=== PATIENT | female | born 1990 | race Caucasian/White ===

== ENCOUNTER 2019-01-09 03:47 | Emergency (ER) | payer SELFPAY ==
[~2019-01-09] VITALS: Ht 160 cm; Wt 86.2 kg
[2019-01-09 04:46] LABS: BILIRUBIN,URINE NEGATIVE (NEGATIVE); CLARITY,URINE CLOUDY (CLEAR); COLOR,URINE YELLOW (YELLOW); KETONES,URINE NEGATIVE (NEGATIVE); LEUKOCYTE ESTERASE ,URINE LARGE (NEGATIVE); NITRITE,URINE POSITIVE (NEGATIVE); PROTEIN,URINE DIPSTICK 2+ (NEGATIVE); URINE UROBILINOGEN 1 mg/dL (0.2 - 1)
[2019-01-09 04:48] LABS: PREGNANCY TEST, URINE NEGATIVE (NEGATIVE)
[2019-01-09 05:00] LABS: BACTERIA,URINE MANY /HPF; EPITHELIAL CELLS,URINE FEW /LPF; WBC,URINE (MAN) >50 /HPF (0-5)
[2019-01-09] MEDS ORDERED: PYRIDIUM100 MG PO (05:24)
[2019-01-09] MEDS ORDERED: MACROBID 100 M100 MG PO (05:24)
[2019-01-09] MEDS ORDERED: KETOROLAC TROMETHAMINE 60 MG/2 ML VIAL IM ONE (05:30)
[2019-01-09 05:54] VITALS: BP 122/76
--- NOTE | 2019-01-09 06:00 | Diagnostic Imaging Report ---
EXAMINATION: PA and lateral views of the chest. COMPARISON: None CLINICAL HISTORY: Pain DISCUSSION: Lines/tubes: None. Lungs: The lungs are well inflated and clear. No pneumonia or pulmonary edema. Pleura: No pleural effusion or pneumothorax. Heart and mediastinum: The cardiomediastinal silhouette is normal. Bones and soft tissues: No acute bony abnormalities. IMPRESSION: No acute cardiopulmonary abnormalities. Signed by: Dr. Robin Duong M.D. on 01/09/2019 5:57 AM
--- NOTE | 2019-01-09 06:01 | Diagnostic Imaging Report ---
Exam:Abdominal radiograph History:Pain Comparison: None available Findings:Nonobstructive bowel gas pattern No radiopaque calculi. Mild amount of retained stool. Impression: Nonobstructive bowel gas pattern. Signed by: Dr. Robin Duong M.D. on 01/09/2019 5:58 AM
== END 2019-01-09 06:01 | disposition home or self-care (01) ==
LOC: ER 03:47
DX: R30.0 Dysuria (principal); N30.91 Cystitis, unspecified with hematuria
CPT/HCPCS: 71046; 74018; 81001; 81025; 87086; 87186; 96372; 99283; J1885

== ENCOUNTER 2019-02-05 00:01 | Emergency (ER) | payer MEDICARE, OTHER ==
[~2019-02-05] VITALS: Ht 160 cm; Wt 86.2 kg
[~2019-02-05 00:01] MED LIST: MACROBID 100 M100 MG PO; PYRIDIUM100 MG PO
--- OUTSIDE RECORDS SUMMARY | 2019-02-05 00:03 | XMS REPORT ---
Author Author [facility] Address Unknown Phone Unavailable Care Team Providers Care It Service Technician Name Role Phone [place] FLORES Unavailable Unavailable Problems This patient has no known problems. Allergies, Adverse Reactions, Alerts This patient has no known allergies or adverse reactions. Medications This patient has no known medications. Results Test Description Test Time Test Comments Text Results Atomic Results Result Comments ABDOMEN-1VIEW ([facility]) 2019-01-09 05:57:00 [place] [address] Patient Name: JHONY GASTELUM MR #: [id number] : 1990 Age/Sex: 28/F Req #: [id number] Adm Physician: Ordered by: YEFRI FLORES MD Report #: [id number] Location: ER Room/Bed: Procedure: [id number] DX/ABDOMEN-1VIEW ([facility]) Exam Date: 01/09/19 Exam Time: 0530 REPORT STATUS: Signed Exam:Abdominal radiograph History:Pain Comparison: None available Findings:Nonobstructive bowel gas pattern No radiopaque calculi. Mild amount of retained stool. Impression: Nonobstructive bowel gas pattern. Signed by: Dr. Piyush De Leon M.D. on 01/09/2019 5:58 AM Dictated By: PIYUSH DE LEON MD Transcribed By: CATA on 01/09/19 58 COPY TO: YEFRI FLORES MD CHEST 2 VIEWS 2019-01-09 05:56:00 [place] [address] Patient Name: JHONY GASTELUM MR #: [id number] : 1990 Age/Sex: 28/F Req #: [id number] Adm Physician: Ordered by: YEFRI FLORES MD Report #: [id number] Location: ER Room/Bed: Procedure: [id number] DX/CHEST 2 VIEWS Exam Date: 01/09/19 Exam Time: 0530 REPORT STATUS: Signed EXAMINATION: PA and lateral views of the chest. COMPARISON: None CLINICAL HISTORY: Pain DISCUSSION: Lines/tubes: None. Lungs: The lungs are well inflated and clear. No pneumonia or pulmonary edema. Pleura: No pleural effusion or pneumothorax. Heart and mediastinum: The cardiomediastinal silhouette is normal. Bones and soft tissues: No acute bony abnormalities. IMPRESSION: No acute cardiopulmonary abnormalities. Signed by: Dr. Piyush De Leon M.D. on 01/09/2019 5:57 AM Dictated By: PIYUSH DE LEON MD Transcribed By: CATA on 01/09/1957 COPY TO: YEFRI FLORES MD
--- NOTE | 2019-02-05 01:00 | NUR ---
PETER MEYER AT FOR INITIAL EVAL
[2019-02-05] MEDS ORDERED: KETOROLAC TROMETHAMINE 30 MG/ML VIAL IM STA (01:34)
[2019-02-05] MEDS ORDERED: KETOROLAC TROMETHAMINE 30 MG/ML VIAL ONE (01:38)
--- NOTE | 2019-02-05 02:43 | Diagnostic Imaging Report ---
EXAMINATION: CXR 2 VIEW - HOPD INDICATION: ^[id number] ^[id number] COMPARISON: 01/09/2019 FINDINGS: PA and lateral views TUBES and LINES: None. LUNGS: Lungs are well inflated. There is no evidence of pneumonia or pulmonary edema. PLEURA: No pleural effusion or pneumothorax. HEART AND MEDIASTINUM: The cardiomediastinal silhouette is unremarkable. BONES AND SOFT TISSUES: No acute osseous lesion. Soft tissues are unremarkable. UPPER ABDOMEN: No free air under the diaphragm. IMPRESSION: No acute thoracic abnormality. Signed by: Dr. Edmond Warner MD on 02/05/2019 2:40 AM
--- NOTE | 2019-02-05 02:44 | Diagnostic Imaging Report ---
KNEE 3VW LT - HOPD - 3 views HISTORY: Pain COMPARISON: None available. FINDINGS: Bones: No acute displaced fracture. Osseous alignment is within normal limits. Joints: The joint spaces are well-maintained. Soft tissues: The soft tissues appear unremarkable. IMPRESSION: No acute radiographic abnormality. Signed by: Dr. Edmond Warner MD on 02/05/2019 2:40 AM
--- NOTE | 2019-02-05 02:48 | Diagnostic Imaging Report ---
HAND 3 VIEW RT - HOPD - 3 views HISTORY: Pain COMPARISON: None available. FINDINGS: Bones: No acute displaced fracture. Osseous alignment is within normal limits. Joints: The joint spaces are well-maintained. Soft tissues: The soft tissues appear unremarkable. IMPRESSION: No acute radiographic abnormality. Signed by: Dr. Edmond Warner MD on 02/05/2019 2:45 AM
--- NOTE | 2019-02-05 02:49 | Diagnostic Imaging Report ---
SHOULDER 2+VW RT - HOPD - 3 views HISTORY: Pain COMPARISON: None available. FINDINGS: Bones: No acute displaced fracture. Osseous alignment is within normal limits. Joints: The joint spaces are well-maintained. Soft tissues: The soft tissues appear unremarkable. IMPRESSION: No acute radiographic abnormality. Signed by: Dr. Edmond Warner MD on 02/05/2019 2:46 AM
--- NOTE | 2019-02-05 02:50 | Diagnostic Imaging Report ---
ANKLE 3 VIEW RT - HOPD - 3 views HISTORY: Pain COMPARISON: None available. FINDINGS: Bones: No acute displaced fracture. Osseous alignment is within normal limits. Joints: The joint spaces are well-maintained. Soft tissues: The soft tissues appear unremarkable. IMPRESSION: No acute radiographic abnormality. Signed by: Dr. Edmond Warner MD on 02/05/2019 2:46 AM
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
== END 2019-02-05 04:00 | disposition home or self-care (01) ==
LOC: FSED 00:01
DX: S40.011A Contusion of right shoulder, initial encounter (principal); S60.011A Contusion of right thumb without damage to nail, initial encounter; S90.01XA Contusion of right ankle, initial encounter; S80.02XA Contusion of left knee, initial encounter; V43.92XA Unspecified car occupant injured in collision with other type car in traffic accident, initial encounter; Y92.414 Local residential or business street as the place of occurrence of the external cause
CPT/HCPCS: 71046; 72125; 73030; 73130; 73562; 73610; 99283; J1885

== ENCOUNTER 2020-05-22 16:15 | Emergency (ER) | payer MEDICARE, OTHER ==
[~2020-05-22] VITALS: Ht 160 cm; Wt 86.2 kg
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
[2020-05-22] MEDS ORDERED: TETANUS/DIPHTHERIA TOX ADULT 0.5 ML SYR IM ONE (17:00)
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
[2020-05-22] MEDS ORDERED: CIPRO250 MG/5 M PO (18:00)
[2020-05-22 18:11] VITALS: BP 139/73
--- NOTE | 2020-05-22 18:27 | Diagnostic Imaging Report ---
FOOT RIGHT AP LAT - 3 views HISTORY: Pain. Stepped on foreign body. COMPARISON: None available. FINDINGS: Bones: No acute displaced fracture. Osseous alignment is within normal limits. Small osteophyte in the first metatarsal head. Joints: Relatively preserved. Soft tissues: Marked soft tissue edema of the forefoot, particularly the plantar aspect. No radiopaque foreign body. IMPRESSION: Marked soft tissue edema of the forefoot, particularly the plantar aspect. No radiopaque foreign body. Signed by: Dr. Sabina Patel M.D. on 05/22/2020 6:23 PM
== END 2020-05-22 18:13 | disposition home or self-care (01) ==
LOC: ER 16:45
DX: S91.341A Puncture wound with foreign body, right foot, initial encounter (principal); W25.XXXA Contact with sharp glass, initial encounter; Y93.01 Activity, walking, marching and hiking; Y92.008 Other place in unspecified non-institutional (private) residence as the place of occurrence of the external cause
CPT/HCPCS: 90471; 90714; 99283

== ENCOUNTER 2020-11-28 11:43 | Emergency (ER) | payer MEDICARE, OTHER ==
[~2020-11-28] VITALS: Ht 160 cm; Wt 86.2 kg
[~2020-11-28 11:43] MED LIST changes: +CIPRO250 MG/5 M PO
[2020-11-28] MEDS ORDERED: SODIUM CHLORIDE 0.9% 1000ML 1,000 ML IV STA (11:58)
[2020-11-28] MEDS ORDERED: MORPHINE SULFATE INJ 4 MG/ML INJ 1ML IV STA (11:58)
[2020-11-28] MEDS ORDERED: ONDANSETRON HCL INJ 2MG/ML 2ML 2 MG/ML VIAL IV STA (11:58)
[2020-11-28 12:55] LABS: CLARITY,URINE SL CLOUDY (CLEAR); COLOR,URINE YELLOW (YELLOW); KETONES,URINE NEGATIVE (NEGATIVE); LEUKOCYTE ESTERASE ,URINE TRACE (NEGATIVE); NITRITE,URINE NEGATIVE (NEGATIVE); PROTEIN,URINE DIPSTICK NEGATIVE (NEGATIVE); URINE UROBILINOGEN 0.2 mg/dL (0.2 - 1)
[2020-11-28 13:00] LABS: ALANINE AMINOTRANSFERASE 22 IU/L (0-55); ALBUMIN/GLOBULIN RATIO 1.1 (0.8-2.0); ALKALINE PHOSPHATASE 63 IU/L (40-150); ANION GAP 12.1 mmol/L (8-16); BLOOD UREA NITROGEN 13 mg/dL (7-26); BUN/CREATININE RATIO 19 (6-25); CALCIUM 9.1 mg/dL (8.4-10.2); CARBON DIOXIDE 26 mmol/L (22-29); CHLORIDE 105 mmol/L (98-107); CREATININE, SERUM 0.69 mg/dL (0.57-1.11); EST GLOMERULAR FILTRATION RATE > 60 ML/MIN (60-); GLUCOSE 102 mg/dL (74-118); LIPASE 35 U/L (8-78); POTASSIUM 4.1 mmol/L (3.5-5.1); SODIUM 139 mmol/L (136-145)
[2020-11-28 13:06] LABS: BACTERIA,URINE MANY /HPF; EPITHELIAL CELLS,URINE MODERATE /LPF; WBC,URINE (MAN) 0-5 /HPF (0-5)
[2020-11-28 13:13] LABS: BASOPHILS % 0.5 % (0.0-1.0); EOSINOPHILS % 0.4 % (0.0-6.0); HEMATOCRIT 37.9 % (34.2-44.1); HEMOGLOBIN 11.7 g/dL (12.0-16.0); LYMPHOCYTES # (AUTO) 1.7 (1.0-3.2); LYMPHOCYTES % 23.4 % (18.0-39.1); MEAN CORPUSCULAR HEMOGLOBIN 25.9 pg (28-32); MEAN CORPUSCULAR HGB CONC 30.9 g/dL (31-35); MEAN CORPUSCULAR VOLUME 83.8 fL (81-99); MONOCYTES # (AUTO) 0.4 (0.2-0.8); MONOCYTES % 5.8 % (4.4-11.3); NEUTROPHILS # (AUTO) 5.1 (2.1-6.9); NEUTROPHILS % 69.6 % (38.7-80.0); PLATELET COUNT 452 x10e3/uL (140-360); RED BLOOD COUNT 4.52 x10e6/uL (3.6-5.1); RED CELL DISTRIBUTION WIDTH 15.2 % (11.7-14.4)
[2020-11-28] MEDS ORDERED: IOPAMIDOL 370 MG/ML 200 ML INFUS..BTL INJ ONE (13:52)
[2020-11-28] MEDS ORDERED: SODIUM CHLORIDE 0.9% 50ML 50 ML ONE (13:52)
[2020-11-28] MEDS ORDERED: ZOFRAN4 MG PO (14:58)
[2020-11-28] MEDS ORDERED: TYLENOL # 31 EA PO (14:58)
== END 2020-11-28 15:04 | disposition home or self-care (01) ==
LOC: ER 13:33
DX: G89.18 Other acute postprocedural pain (principal); N39.0 Urinary tract infection, site not specified
CPT/HCPCS: 36415; 74177; 80053; 81001; 81025; 83690; 85025; 99284; J2270; J2405; J7030; Q9967